=== PATIENT | female | born 1975 | race Two or more races ===

== ENCOUNTER 2017-06-25 05:55 | Day surgery (SDC) | payer OTHER ==
[~2017-06-25 05:55] MED LIST: PROTONIX40 MG PO; REGLAN5 MG/5 ML PO; VITAMIN D32000 UNIT PO; ZANTAC300 MG PO
== END 2017-06-25 14:10 | disposition home or self-care (01) ==
LOC: CIR.AMB 05:55
DX: N84.0 Polyp of corpus uteri (principal)

== ENCOUNTER 2024-05-29 13:02 | Outpatient (CLI) | payer OTHER | END 2024-05-29 13:07 | disposition home or self-care (01) | LOC: SONOGRAMA 13:02 | PROVIDERS: ATTEND Pathology Anatomic Pathology & Clinical Pathology | DX: C73 Malignant neoplasm of thyroid gland (principal); D34 Benign neoplasm of thyroid gland; E07.89 Other specified disorders of thyroid ==

== ENCOUNTER 2024-08-06 07:14 | Inpatient (IN) | payer OTHER ==
[~2024-08-06] VITALS: Ht 162.6 cm; Wt 86.2 kg
[2024-08-06 08:03] LABS: HEMATOCRIT 37.9 % (36.0-45.00); MEAN CORPUSCULAR HEMOGLOBIN 29.4 pg (27.00-32.0); MEAN CORPUSCULAR HGB CONC 34.2 g/dl (32.0-36.0); PLATELET COUNT 256 K/uL (150-450); RED BLOOD COUNT 4.41 M/uL (4.00-6.00); RED CELL DISTRIBUTION WIDTH 12.9 % (11.5-14.5)
[2024-08-06 08:14] LABS: PH,URINE 6.5 (5.0-8.0); URINE APPEARANCE Clear; URINE BILIRRUBIN Negative (NEGATIVE); URINE BLOOD Negative; URINE COLOR Yellow; URINE GLUCOSE Negative (NEGATIVE); URINE KETONE Negative (NEGATIVE); URINE LEUKOCYTE Negative; URINE NITRATE Negative; URINE PROTEIN Negative (NEGATIVE); URINE UROBILINOGEN 0.2 E.U./dl
[2024-08-06 08:15] LABS: URINE BACTERIA 8.5 uL (0.0-1933); URINE RBC 7.2 uL (0.0-20.8)
[2024-08-06 08:21] LABS: URINE EPITHELIAL CELLS 0.7 uL (0.0-38.8); URINE WBC 0.7 uL (0.0-23.2)
[2024-08-06 08:24] LABS: PARTIAL THROMBOPLASTIN TIME 27.6 SECONDS (22.0-34.0); PROTHROMBIN TIME 10.9 SECONDS (9.0-11.5)
[2024-08-06] MEDS ORDERED: COZAAR50 MG PO (08:24)
[2024-08-06] MEDS ORDERED: HYDRODIURIL12.5 MG PO (08:24)
[2024-08-06] MEDS ORDERED: DAFLONEX-XL 11300 MG PO (08:25)
[2024-08-06] MEDS ORDERED: LEXAPRO5 MG PO (08:25)
[2024-08-06] MEDS ORDERED: FAMOTIDINE40 MG PO (08:26)
[2024-08-06] MEDS ORDERED: LORAZEPAM1 MG PO (08:26)
[2024-08-06] MEDS ORDERED: MULTIPLE VITAM1 EAC2 PO (08:27)
[2024-08-06 08:32] VITALS: BP 120/82
[2024-08-06 08:48] LABS: ALBUMIN 4.1 gm/dL (3.4-5.0); BILIRUBIN TOTAL 0.27 mg/dL (0.3-1.2); CALCIUM 9.3 mg/dL (8.5-10.1); CREATININE SERUM 0.81 mg/dL (0.55-1.02); GFR 75.15; GLOBULINA 3.6 G/DL (2.4-3.5); POTASSIUM 4.16 mEq/L (3.5-5.1); TOTAL PROTEIN 7.7 gm/dL (6.4-8.2)
[2024-08-14] MEDS ORDERED: DEXAMETHASONE SODIUM PHOSPHATE 4 MG/ML VIAL ONE (09:51)
[2024-08-14] MEDS ORDERED: ONDANSETRON HCL 2 MG/ML VIAL IV PRN (14:15)
[2024-08-14] MEDS ORDERED: ENALAPRILAT DIHYDRATE 1.25 MG/ML VIAL IV PRN (14:15)
[2024-08-14 14:46] VITALS: BP 107/72; O2SAT 96
[2024-08-14] MEDS ORDERED: GABAPENTIN 100 MG CAPSULE PO SCH (17:00)
[2024-08-14] MEDS ORDERED: TRAMADOL HCL 50 MG TABLET PO SCH (17:00)
[2024-08-14] MEDS ORDERED: ACETAMINOPHEN 500 MG GEL..CAP PO SCH (17:00)
[2024-08-14] MEDS ORDERED: LORazepam 1 MG TABLET PO SCH (17:00)
[2024-08-14] MEDS ORDERED: CYCLOBENZAPRINE HCL 5 MG TABLET PO SCH (17:00)
[2024-08-14] MEDS ORDERED: DIPHENHYDRAMINE HCL 30 MG,LIDOCAINE HCL 30 ML,MAG HYDROX/ALUMINUM HYD/SIMETH 30 ML PO SCH (19:47)
[2024-08-14] MEDS ORDERED: PANTOPRAZOLE SODIUM 40 MG/VIAL VIAL IV PUSH SCH (21:00)
[2024-08-14 23:59] VITALS: BP 104/61
[2024-08-15 07:30] VITALS: BP 118/69; O2SAT 95
[2024-08-15] MEDS ORDERED: DIPHENHYDRAMINE HCL 150 MG,LIDOCAINE HCL 60 ML,MAG HYDROX/ALUMINUM HYD/SIMETH 60 ML PO SCH (09:00)
[2024-08-15] MEDS ORDERED: LOSARTAN POTASSIUM 50 MG TABLET PO SCH (09:00)
[2024-08-15] MEDS ORDERED: HYDROCHLOROTHIAZIDE 12.5 MG CAPSULE PO SCH (09:00)
== END 2024-08-15 14:47 | disposition home or self-care (01) | DRG 626 ==
LOC: O/R 08-14 06:25 → SURG 08-14 06:25 → SURH 08-14 07:00 → O/R 08-14 09:23 → SURG 08-14 11:57
PROVIDERS: ADMIT Surgery; ATTEND Surgery
PROC: 07T10ZZ Resection of Right Neck Lymphatic, Open Approach (ICD-10-PCS; 2024-08-14)
PROC: 0GTH0ZZ Resection of Right Thyroid Gland Lobe, Open Approach (ICD-10-PCS; principal; 2024-08-14 07:00)
DX: C73 Malignant neoplasm of thyroid gland (principal); C77.0 Secondary and unspecified malignant neoplasm of lymph nodes of head, face and neck

== ENCOUNTER 2024-10-06 07:53 | Outpatient (CLI) | payer OTHER ==
[~2024-10-06 07:53] MED LIST changes: +COZAAR50 MG PO; +DAFLONEX-XL 11300 MG PO; +FAMOTIDINE40 MG PO; +HYDRODIURIL12.5 MG PO; +LEXAPRO5 MG PO; +LORAZEPAM1 MG PO; +MULTIPLE VITAM1 EAC2 PO
== END 2024-10-06 08:04 | disposition home or self-care (01) ==
LOC: SONOGRAMA 07:53
PROVIDERS: ATTEND Surgery
DX: J03.90 Acute tonsillitis, unspecified (principal)

== ENCOUNTER 2024-10-20 07:00 | Inpatient (IN) | payer OTHER ==
[~2024-10-20] VITALS: Ht 162.6 cm; Wt 88.5 kg
[2024-10-20 08:48] LABS: BASO % 0.8 % (0.1-1.2); EOS # 0.08 (0.04-0.54); EOS % 1.3 % (0.7-7.0); LYMPH # 1.74 (1.18-3.74); LYMPH % 27.8 % (19.3-53.1); MEAN PLATELET VOLUME 8.60 fl (9.4-12.4); MONO # 0.26 (0.24-0.82); MONO % 4.1 % (4.7-12.5); NEUT # 4.12 (1.56-6.13); NEUT % 65.7 % (34.0-71.1); RED CELL DISTRIBUTION WIDTH 12.9 % (11.6-14.4)
[2024-10-20] MEDS ORDERED: SYNTHROID50 MCG PO (08:51)
[2024-10-20 08:52] LABS: URINE APPEARANCE Clear; URINE BILIRRUBIN Negative (NEGATIVE); URINE BLOOD Negative; URINE COLOR Yellow; URINE GLUCOSE Negative (NEGATIVE); URINE KETONE Negative (NEGATIVE); URINE LEUKOCYTE Trace; URINE NITRATE Negative; URINE PROTEIN Negative (NEGATIVE); URINE UROBILINOGEN 0.2 E.U./dl
[2024-10-20] MEDS ORDERED: ACETYLCYST100 MG/1 M IH (08:53)
[2024-10-20] MEDS ORDERED: FLONASE16 GM (08:54)
[2024-10-20 08:55] VITALS: BP 144/76
[2024-10-20 08:56] LABS: URINE BACTERIA 110.3 uL (0.0-1933); URINE EPITHELIAL CELLS 10.4 uL (0.0-38.8); URINE RBC 4.9 uL (0.0-20.8); URINE WBC 12.4 uL (0.0-23.2)
[2024-10-20 09:03] LABS: URINE CAST 0.00 uL (0.0-1.40)
[2024-10-20 09:19] LABS: INR 0.98
[2024-10-20 09:24] LABS: ALT/SGPT 37.0 U/L (12-78); AST/SGOT 22.0 U/L (15-37); BILIRUBIN TOTAL 0.44 mg/dL (0.3-1.2); BUN CREA RATIO 15.0 (7.0-25.0); CREATININE SERUM 0.75 mg/dL (0.55-1.02); GFR 82.13; GLOBULINA 3.5 G/DL (2.4-3.5); GLUCOSE FASTING 102.0 mg/dL (65-100); OSMOLALITY SERUM 283.0 MOSM/KG (275-295)
[2024-10-28] MEDS ORDERED: AZELASTINE137 MCG/0. (13:58)
[2024-10-28] MEDS ORDERED: DEXAMETHASONE SODIUM PHOSPHATE 4 MG/ML VIAL IV ONE (15:30)
[2024-10-28] MEDS ORDERED: ENALAPRILAT DIHYDRATE 1.25 MG/ML VIAL IV PRN (17:00)
[2024-10-28] MEDS ORDERED: ONDANSETRON HCL 2 MG/ML VIAL IV PRN (17:00)
[2024-10-28] MEDS ORDERED: ONDANSETRON HCL 2 MG/ML VIAL IV ONE (17:15)
[2024-10-28] MEDS ORDERED: MORPHINE SULFATE 4 MG/ML VIAL IV ONE (18:00)
[2024-10-28 19:32] VITALS: BP 108/66; O2SAT 99
[2024-10-28] MEDS ORDERED: PANTOPRAZOLE SODIUM 40 MG/VIAL VIAL IV PUSH SCH (21:00)
[2024-10-29] VITALS: BP 112/73
[2024-10-29] MEDS ORDERED: DIPHENHYDRAMINE HCL 75 MG,LIDOCAINE HCL 30 ML,MAG HYDROX/ALUMINUM HYD/SIMETH 30 ML PO SCH (01:00)
[2024-10-29] MEDS ORDERED: ACETAMINOPHEN 500 MG GEL..CAP PO SCH (01:00)
[2024-10-29] MEDS ORDERED: TRAMADOL HCL 50 MG TABLET PO SCH (01:00)
[2024-10-29] MEDS ORDERED: LEVOTHYROXINE SODIUM 137 MCG TABLET PO SCH (06:00)
[2024-10-29 08:00] VITALS: BP 111/70; O2SAT 98
[2024-10-29] MEDS ORDERED: ESCITALOPRAM 5 MG PO SCH (09:00)
[2024-10-29] MEDS ORDERED: HYDROCHLOROTHIAZIDE 12.5 MG CAPSULE PO SCH (09:00)
[2024-10-29] MEDS ORDERED: LOSARTAN POTASSIUM 50 MG TABLET PO SCH (09:00)
[2024-10-29] MEDS ORDERED: FLUTICASONE PROPIONATE 50 MCG SPRAY NASAL SCH (09:00)
[2024-10-29] MEDS ORDERED: CYCLOBENZAPRINE HCL 5 MG TABLET PO SCH (17:00)
== END 2024-10-29 15:21 | disposition home or self-care (01) | DRG 627 ==
LOC: SURH 10-28 07:00 → O/R 10-28 13:40 → SURG 10-28 17:31
PROVIDERS: ADMIT Surgery; ATTEND Surgery
PROC: 0GTG0ZZ Resection of Left Thyroid Gland Lobe, Open Approach (ICD-10-PCS; principal; 2024-10-28 12:00)
DX: C73 Malignant neoplasm of thyroid gland (principal)